=== PATIENT | female | born 1975 | race African-American/Black ===

== ENCOUNTER 2024-01-15 12:19 | Outpatient (CLI) | payer OTHER, SELFPAY | END 2024-01-15 12:20 | disposition home or self-care (01) | PROVIDERS: PCP Physician Assistant Medical; Visit Provider Physician Assistant Medical | DX: Z00.00 Encounter for general adult medical examination without abnormal findings (principal); R60.0 Localized edema; Z13.6 Encounter for screening for cardiovascular disorders; Z13.1 Encounter for screening for diabetes mellitus; Z11.59 Encounter for screening for other viral diseases; Z11.3 Encounter for screening for infections with a predominantly sexual mode of transmission; Z13.29 Encounter for screening for other suspected endocrine disorder; Z97.5 Presence of (intrauterine) contraceptive device | CPT/HCPCS: 80053; 80061; 82607; 83001; 83880; 84443; 86140; 86703; 86803 ==

== ENCOUNTER 2024-02-17 14:34 | Outpatient (CLI) | payer OTHER, SELFPAY ==
--- NOTE | 2024-02-17 14:40 | CRLHL7_ITS ---
For Patients: As a result of the Century Cures Act, medical imaging exams and procedure reports are released immediately into your electronic medical record. You may view this report before your referring provider. If you have questions, please contact your health care provider. BILATERAL SCREENING MAMMOGRAM WITH COMPUTER-AIDED DETECTION AND TOMOSYNTHESIS TECHNIQUE: CC and MLO views were obtained. These mammographic images have been obtained using full-field digital technique. These mammographic images were interpreted with the benefit of computer-aided detection. Breast Tomosynthesis was used in this interpretation. COMPARISON FILM: 05/29/21, 12/29/18. FINDINGS: The breasts are almost entirely fatty. IMPRESSION: There is no radiographic evidence for malignancy. ASSESSMENT: BI-RADS Category 2: Benign RECOMMENDATION: Routine screening mammogram in 1 year. A lay language report of this examination will be provided to the patient. Colin Mcrae M.D. Diagnostic Radiologist [email or web address] SP/Dictated by: Colin Mcrae MD @ 02/18/2024 8:57:00 AM (Electronically Signed)
== END 2024-02-17 14:35 | disposition home or self-care (01) ==
LOC: MAMMO 14:35
PROVIDERS: PCP Physician Assistant Medical; Visit Provider Physician Assistant Medical
DX: Z12.31 Encounter for screening mammogram for malignant neoplasm of breast (principal)
CPT/HCPCS: 77063; 77067

== ENCOUNTER 2024-02-20 07:05 | Outpatient (CLI) | payer OTHER, SELFPAY ==
--- NOTE | 2024-02-20 07:39 | W.ANESCHARGE ---
Anesthesia Charges Start Date/Time Anesthesia Start Date: 02/20/24 Anesthesia Start Time: 07:42 Stop Date/Time Anesthesia Stop Date: 02/20/24 Anesthesia Stop Time: 08:18
--- NOTE | 2024-02-20 08:27 | W.ANESCHARGE ---
Anesthesia Charges Start Date/Time Anesthesia Start Date: 02/20/24 Anesthesia Start Time: 07:42 Stop Date/Time Anesthesia Stop Date: 02/20/24 Anesthesia Stop Time: 08:18
== END 2024-02-20 07:06 | disposition home or self-care (01) ==
PROVIDERS: PCP Physician Assistant Medical; Visit Provider Internal Medicine
DX: Z12.11 Encounter for screening for malignant neoplasm of colon (principal); D12.5 Benign neoplasm of sigmoid colon; R10.13 Epigastric pain
CPT/HCPCS: 00813; 43239; 45380; 88305; J2704; J3490